=== PATIENT | female | born 1995 ===

== ENCOUNTER 2017-04-01 20:31 | Emergency (ER) | payer SELFPAY ==
[2017-04-01 20:35] VITALS: BP 150/101
[2017-04-01 20:56] LABS: Urine Bacteria 1+ (Absent); Urine Bilirubin Negative (Negative); Urine Glucose Negative (Negative); Urine Nitrite Positive (Negative)
[2017-04-01 22:02] LABS: Manual Entry Verification CAR0052; UR Preg Internal Control QC Line Present; UR Preg Kit Lot# 7030210
[2017-04-01] MEDS ORDERED: NS 0.9% 1000 ML* 1,000 ML IV ONE (22:45)
[2017-04-01] MEDS ORDERED: cefTRIAXone(*) 1 GM in NS 0.9% 50 ML* 50 ML IVPB ONE (22:51)
[2017-04-01] MEDS ORDERED: Ondansetron INJ* 2 MG/ML VIAL IV ONE (22:51)
[2017-04-01] MEDS ORDERED: Ketorolac INJ* 30 MG/ML 1 ML VIAL IV PUSH ONE (22:51)
--- NOTE | 2017-04-01 22:54 | ED ---
GI/ HPI - HPI Summary HPI Summary: 21F presents with right sided back pain and foul smelling urine for 3 days. She states that the pain is not getting better with Tylenol. She denies any injury. She denies any fever. She admits to nausea. She denies any abdominal pain. She denies any dysuria. She admits to flank pain and frequency. She denies any vaginal discharge or history of STDs. She denies any chance she is . She has not had any previous abdominal surgeries. She denies any vomiting or diarrhea. - History of Current Complaint Chief Complaint: EDBackInjuryPain Time Seen by Provider: 04/01/17 22:42 Stated Complaint: LOWER RIGHT FLANK PAIN Pain Intensity: 6 - Allergy/Home Medications Allergies/Adverse Reactions: Allergies Allergy/AdvReac Type Severity Reaction Status Date / Time No Known Allergies Allergy Verified 04/01/17 20:37 PMH/Surg Hx/FS Hx/Imm Hx Endocrine/Hematology History: Denies: Hx Anticoagulant Therapy Cardiovascular History: Denies: Hx Hypertension Infectious Disease History: No Infectious Disease History: Denies: Traveled Outside the [place] in Last 30 Days - Family History Known Family History: Negative: Renal Disease - Social History Lives: Dormitory/Roommates Substance Use Type: Reports: None Smoking Status (MU): Never Smoked Tobacco Review of Systems Negative: Fever Negative: Chest Pain Negative: Shortness Of Breath Positive: Nausea. Negative: Abdominal Pain, Vomiting Positive: frequency, flank pain. Negative: dysuria All Other Systems Reviewed And Are Negative: Yes Physical Exam Triage Information Reviewed: Yes Vital Signs On Initial Exam: Initial Vitals Temp Pulse Resp BP Pulse Ox 98.6 F 88 14 150/101 98 04/01/17 20:33 04/01/17 20:33 04/01/17 20:33 04/01/17 20:33 04/01/17 20:33 Vital Signs Reviewed: Yes Appearance: Positive: Well-Appearing Skin: Positive: Warm, Dry Head/Face: Positive: Normal Head/Face Inspection Eyes: Positive: Normal, EOMI, MARK, Conjunctiva Clear ENT: Positive: Normal ENT inspection, Pharynx normal, TMs normal Respiratory/Lung Sounds: Positive: Clear to Auscultation, Breath Sounds Present Cardiovascular: Positive: Normal, RRR Abdomen Description: Positive: Nontender, Soft, CVA Tenderness (R) Bowel Sounds: Positive: Present Musculoskeletal: Positive: Normal Neurological: Positive: Normal Psychiatric: Positive: Normal Diagnostics - Vital Signs Vital Signs Temp Pulse Resp BP Pulse Ox 04/01/17 20:33 98.6 F 88 14 150/101 98 - Laboratory Lab Results: Lab Results 04/01/17 Range/Units 20:41 Urine Color Yellow Urine Appearance Cloudy Urine pH 5.0 (5-9) Ur Specific [place] 1.009 L (1.010-1.030) Urine Protein 1+(30 mg/dl) H (Negative) Urine Ketones Negative (Negative) Urine Blood 2+ H (Negative) Urine Nitrate Positive H (Negative) Urine Bilirubin Negative (Negative) Urine Urobilinogen Negative (Negative) Ur Leukocyte Esterase 2+ H (Negative) Urine WBC (Auto) 3+(>20/hpf) H (Absent) Urine RBC (Auto) 2+(6-10/hpf) H (Absent) Urine Bacteria 1+ H (Absent) Urine Glucose Negative (Negative) Urine Test Negative (Negative) Result Diagrams: 04/01/17 23:00 04/01/17 23:00 Lab Statement: Any lab studies that have been ordered have been reviewed, and results considered in the medical decision making process. - Ultrasound No standard instances Ultrasound Interpretation: No Acute Changes - normal kidney Ultrasound Interpretation Completed By: Radiologist Re-Evaluation - Re-Evaluation First Eval Re-Evaluation Time: 23:49 Change: Improved Comment: feels better after toradol GIGU Course/Dx - Course Course Of Treatment: 21F presents with right sided back pain and foul smelling urine for 3 days. She states that the pain is not getting better with Tylenol. She denies any injury. She denies any fever. She admits to nausea. She denies any abdominal pain. She denies any dysuria. She admits to flank pain and frequency. She denies any vaginal discharge or history of STDs. She denies any chance she is . She has not had any previous abdominal surgeries. She denies any vomiting or diarrhea. on exam has CVA tenderness right. urine shows leuko, wbc, nitrates. wbc 12. u/s renal normal. gave dose of rocephin, toradol and zofran and feeling better. will treat with bactrim for pyelo. patient understands and agrees with plan. - Diagnoses Differential Diagnoses - Female: Pyelonephritis, Urinary Tract Infection, Ureteral Calculi Provider Diagnoses: Pyelonephritis Discharge - Discharge Plan Condition: Good Disposition: HOME Prescriptions: Ondansetron ODT TAB* [Zofran 4 MG Odt TAB*] 4 mg PO Q6H PRN #20 tab.odt PRN Reason: Nausea Sulfamethox/Trimethoprim DS* [Bactrim DS 800/160 TAB*] 1 tab PO BID #28 tab Patient Education Materials: Kidney Infection (ED) Referrals: No Primary Care Phys,NOPCP [Primary Care Provider] - Additional Instructions: Take antibiotic twice a day for 14 days, starting tomorrow Use Zofran every 6 hours for nausea as needed Drink plenty of water Use alternative forms of control Take Tylenol or ibuprofen every 6 hours as needed for pain and fever Return to ED if develop severe vomiting, or any new or worsening symptoms
[2017-04-01 23:32] LABS: Hematocrit 45 % (35-47); Hemoglobin 15.4 g/dl (12.0-16.0); Mean Corpuscular HGB Conc 34 g/dl (31-36); Mean Corpuscular Hemoglobin 29 pg (27-31); Mean Corpuscular Volume 85 fL (80-97); Mean Platelet Volume 8 um3 (7.4-10.4); Red Blood Count 5.32 10^6/ul (4.0-5.4); Red Cell Distribution Width 13 % (10.5-15)
[2017-04-01 23:41] LABS: Albumin 4.4 g/dL (3.2-5.2); C Reactive Protein 10.43 mg/L (< 5.00); EGFR African American 106.5 (>60); EGFR Non-African American 82.8 (>60); Globulin 3.7 g/dL (2-4); Potassium 3.9 mmol/L (3.5-5.0); Total Bilirubin 0.3 mg/dL (0.2-1.0); Total Protein 8.1 g/dL (6.4-8.9)
--- NOTE | 2017-04-02 08:11 | RAD ---
Indication: RIGHT flank pain. UTI. Comparison: No relevant prior exams available on the [facility] [place] [facility] PACS for comparison. Technique: Renal ultrasound. Report: Unremarkable 10.3 x 5.5 x 5.1 cm RIGHT kidney and 10.7 x 4.1 x 4.6 cm LEFT kidney. Normal renal cortical echogenicity. No conspicuous stones, hydronephrosis, focal renal lesions, or perinephric fluid. IMPRESSION: Negative renal ultrasound.
--- NOTE | 2017-04-03 09:17 | PN ---
Progress Note - Progress Note Date of Service: 04/01/17 Note: Patient diagnosed with UTI. Grew >100,000 of E. Coli. Treated on Bactrim at d/c. Will wait for final culture results.
== END 2017-04-02 00:11 | disposition home or self-care (01) ==
LOC: ED 20:31
DX: N12 Tubulo-interstitial nephritis, not specified as acute or chronic (principal); N39.0 Urinary tract infection, site not specified; B96.20 Unspecified Escherichia coli [E. coli] as the cause of diseases classified elsewhere
CPT/HCPCS: 36415; 76775; 80053; 81003; 81015; 81025; 83605; 83690; 85025; 86140; 87077; 87086; 87186; 96360; 96374; 96375; 99282; J0696; J1885; J2405